=== PATIENT | male | born 1995 | race Caucasian/White ===

== ENCOUNTER 2018-12-05 23:36 | Emergency (ER) | payer OTHER ==
[~2018-12-05] VITALS: Ht 177.8 cm; Wt 86.4 kg
[2018-12-05 23:37] VITALS: BP 157/79
[2018-12-06] MEDS ORDERED: predniSONE 20 MG TAB PO ONE
[2018-12-06] MEDS ORDERED: diphenhydrAMINE 50 MG CAP PO ONE
== END 2018-12-06 00:35 | disposition home or self-care (01) ==
LOC: M ED 23:36
DX: F10.929 Alcohol use, unspecified with intoxication, unspecified (principal); F17.200 Nicotine dependence, unspecified, uncomplicated

== ENCOUNTER 2019-08-09 12:37 | Emergency (ER) | payer OTHER ==
[~2019-08-09] VITALS: Ht 177.8 cm; Wt 98.3 kg
[2019-08-09 14:17] LABS: BASO # 0.1 10^3/uL (0.0-0.2); BASO % 0.7 % (0.0-1.0); EOS # 0.2 10^3/uL (0.0-0.5); EOS % 2.6 % (0.0-3.0); HEMATOCRIT 46.3 % (42.0-52.0); HEMOGLOBIN 16.1 g/dl (13.5-17.5); LYMPH # 1.6 10^3/uL (1.5-5.0); LYMPH % 19.5 % (24.0-44.0); MEAN CORPUSCULAR HEMOGLOBIN 31.1 pg (27.0-33.0); MEAN CORPUSCULAR HGB CONC 34.8 g/dl (32.0-36.5); MEAN CORPUSCULAR VOLUME 89.6 fl (80.0-96.0); MONO % 12.2 % (0.0-5.0); NEUTROPHILS # 5.2 10^3/uL (1.5-8.5); NEUTROPHILS % 64.6 % (36.0-66.0); PLATELET COUNT, AUTOMATED 262 10^3/uL (150-450); RED BLOOD COUNT 5.17 10^6/uL (4.30-6.10); WHITE BLOOD COUNT 8.1 10^3/uL (4.0-10.0)
[2019-08-09 14:49] LABS: BLOOD UREA NITROGEN 14 MG/DL (7-18); C REACTIVE PROTEIN QUANTITATIV 0.68 MG/DL (0.00-0.30); CARBON DIOXIDE LEVEL 27 MEQ/L (21-32); CHLORIDE LEVEL 107 MEQ/L (98-107); CK-MB VALUE MASS < 1.0 NG/ML (<3.6); CPK CREATINE PHOSPHOKINASE 140 U/L (39-308); CREATININE FOR GFR 1.19 MG/DL (0.70-1.30); GLOMERULAR FILTRATION RATE > 60.0 (>60); GLUCOSE, FASTING 87 MG/DL (70-100); MB/CK RELATIVE INDEX 0.71 (< OR =4); NT-PRO BNP 19 PG/ML (<125); POTASSIUM SERUM 4.2 MEQ/L (3.5-5.1); SODIUM LEVEL 143 MEQ/L (136-145); TROPONIN I < 0.02 NG/ML (< 0.10)
[2019-08-09] MEDS ORDERED: NAPR-837 PO (14:59)
[2019-08-09 15:00] VITALS: BP 135/77
[2019-08-09] MEDS ORDERED: VENTAER INH (15:00)
[2019-08-09] MEDS ORDERED: NAPROXEN 250 MG TAB PO ONE (15:00)
--- NOTE | 2019-08-09 15:09 | REP ---
CHEST, TWO VIEWS: There is no evidence of acute infiltrate. No pleural effusion is seen. The heart is normal in size. The mediastinal silhouette is unremarkable. The visualized osseous structures are intact. IMPRESSION: No acute pulmonary disease. Electronically Signed by Nick Higuera MD 08/09/2019 03:24 P
[2019-08-09 15:45] LABS: ERYTHROCYTE SEDIMENTATION RATE 1 mm/hr (0-15)
--- NOTE | 2019-08-09 20:46 | ECGEPIP ---
[facility] - ED Test Date: 2019-08-09 Pat Name: CLEMENTINE SINCLAIR Department: Room: - Gender: Male Maturity Checker: ct : 1995 Requested By: MARIZA SANDERS Order Number: [id number] Reading MD: Kae Morel Measurements Intervals Walker Rate: 87 P: 53 [place]: 152 QRS: 52 QRSD: 88 T: 49 QT: 332 QTc: 400 Interpretive Statements SINUS RHYTHM NO PRIOR Electronically Signed on 08-09-2019 20:46:06 EDT by Kae Morel
== END 2019-08-09 15:15 | disposition home or self-care (01) ==
LOC: M ED 12:37
DX: R07.89 Other chest pain (principal); F17.200 Nicotine dependence, unspecified, uncomplicated; Z91.011 Allergy to milk products